=== PATIENT | male | born 1955 | race Caucasian/White ===

== ENCOUNTER 2019-04-17 10:14 | Emergency (ER) | payer BC, SELFPAY ==
[2019-04-17 10:15] VITALS: BP 124/81; PULSE 85; RESP 16; TEMP 36.6; O2SAT 97; BMI 31.4
[2019-04-17 10:17] VITALS: BP 124/81; PULSE 85; RESP 16; TEMP 36.6; O2SAT 97
--- NOTE | 2019-04-17 10:32 | ED.VIS.GEN ---
History of Present Illness Chief Complaint: Edema Detail of Chief Complaint: Localized swelling pain distal medial right leg Informant: Patient Onset: Weeks Context: Sudden Onset Timing: Continuous Quality: Pain Location: Anterior medial distal right leg Current Severity: Mild Maximum Severity: Moderate Worsened by: Palpation and wearing socks Relieved by: Nothing Associated Symptoms: No associated symptoms Narrative: Patient is a 63-year-old male visiting from [place]. He presents because of persistent pain right leg. He was seen at emergency room. He was placed on doxycycline for possible cellulitis. A venous duplex study was performed and revealed no evidence of clot. He was told by the emergency physician this may represent a hematoma versus abscess versus cellulitis and reason she placed him on doxycycline. She did not perform I&D. He does have a history of borderline diabetes on metformin. He denies history of peripheral arterial disease and denies symptoms of claudication. He denies fever, chills or night sweats. Prior similar symptoms: Yes Recent Illness/Hospitalization: Yes - Past Medical History (1) Type 2 diabetes mellitus Status: Acute Past Medical History - Allergies and Home Meds Allergies/Adverse Reactions: Allergies No Known Allergies Allergy (Verified 04/17/19 10:15) Primary Care Physician: NOT,DEFINED [Primary Care Provider] - Prior records reviewed: No - [id number] Past Medical History: - - Type 2 diabetes Surgical History: noncontributory Lives: Alone Smoking Status: Former smoker Alcohol: Rare Drugs: None Review of Systems General: Denies: Chills, Fever, Malaise, Subjective, Sweats, Weight loss, - Cardiovascular: Reports: Chest pain, Palpitations Respiratory: Reports: Dyspnea Gastrointestinal: Reports: Nausea, Vomiting Musculoskeletal: Reports: Swelling, Extremity Pain. Denies: Myalgias, Arthralgias, Neck pain, Back pain Skin: Reports: Rash Neurological: Denies: Headache, Weakness, Parasthesia, Numbness Hematologic: Denies: Easy bruising, Easy bleeding Physical Exam Vital Signs/Narrative: Vital Signs Temp Pulse Resp BP Pulse Ox 04/17/19 10:17 97.8 F 85 16 124/81 H 97 04/17/19 10:15 97.8 F 85 16 124/81 H 97 Inital Vital Signs reviewed: Yes General: Well nourished, Well developed, No Acute Distress Head: Normocephalic, Atraumatic Eyes: Perrl, EOMI Cardiovascular: Regular rate, Regular rhythm Respiratory: No distress Back: Nontender, Normal Inspection Extremities: Tenderness, Edema, - - The area of swelling and bogginess. This area is tender. There is no warmth, induration, lymphangitis or popliteal lymphadenopathy.. Negative for: Nontender, No edema Skin: Normal color, No rash, No Trauma. Negative for: Cyanosis, Diaphoresis, Jaundice Neurological: Alert, Oriented x3, Cranial nerves II-XII grossly intact, Normal Strength, Normal Sensation Psychological: Normal affect Diagnostic/Tx/Re-eval - Medical Decision Making Ultrasound was performed. There was a collection of fluid noted. The area was prepped. Approximately 5 to 0.75 cc of blood was aspirated. Patient was informed that he has a hematoma. The blood did not appear brown. Splane the discoloration that he has medial aspect of the right ankle. The discoloration is consistent with blood. Procedures Procedure(s): Needle aspirate of subcutaneous hematoma using ultrasound at bedside ED Disposition - Plan for ED Patient: Disposition: Home or Assisted Living Diagnosis: Hematoma of lower leg Instructions: Hematoma Referrals: NOT,DEFINED [Primary Care Provider] - Doctor,Your [STAFF PHYSICIAN] - 10-14 Days if not better
== END 2019-04-17 11:10 | disposition home or self-care (01) ==
LOC: ED 10:55
PROVIDERS: Emergency Provider Emergency Medicine
DX: S80.11XA Contusion of right lower leg, initial encounter (principal); X58.XXXA Exposure to other specified factors, initial encounter; Y93.9 Activity, unspecified; Y92.9 Unspecified place or not applicable; Y99.9 Unspecified external cause status; E11.9 Type 2 diabetes mellitus without complications; Z79.84 Long term (current) use of oral hypoglycemic drugs; Z87.891 Personal history of nicotine dependence
CPT/HCPCS: 99282